=== PATIENT | female | born 1950 | race Caucasian/White ===

== ENCOUNTER → 2016-07-18 | Outpatient (CLI) | payer BC, MEDICARE ==
[~2016-07-18] MED LIST: ESTR0.5T15 PO; FEXO30TA7 PO; FISH1CAP29 PO; MELO-11 PO; OLME20TA11 PO; PROP80TA PO; SERT25TA PO
--- NOTE | 2016-07-18 14:48 | DI ---
Indication: ITS.REASON: SPINAL STENOSIS M48.06 PROCEDURE: CT LUMBAR SPINE W/O CONTRAST: Encounter: Initial Comparison: None Technique: Axial noncontrast CT imaging of the lumbar spine was performed with coronal and sagittal two-dimensional reformats. Automated Exposure Control and Iterative Reconstruction dose reducing techniques were utilized. FINDINGS: Alignment of the lumbar spine is abnormal with scoliosis. No acute fracture. Posterior L3-L4 spinal fusion with decompression at L4 as well. Removal of prior pedicle screws at the L4 level. Interbody bone cages at L3-L4 and L4-L5. Degenerative grade 1 retrolisthesis of L1 on L2 and L2 on L3. Paraspinal soft tissues show bilateral lower pole renal stones. Segmental analysis: T12-L1: Severe disk height loss without focal disk herniation or central canal stenosis. No significant neural foraminal narrowing. L1-L2: Retrolisthesis with degenerative facet disease contributing to mild central canal stenosis. Moderate left and severe right neural foraminal stenosis. L2-L3: Degenerative facet disease with a small disk bulge and retrolisthesis contributes to mild central canal stenosis. Mild left and moderate right neural foraminal stenosis. L3-L4: No gross central canal stenosis. Degenerative facet disease without obvious neural foraminal narrowing. L4-L5: Posterior decompression. Left central disk protrusion narrowing the left lateral recess. No true neural foraminal stenosis. L5-S1: No significant disk herniation or central canal stenosis. Degenerative facet disease contributing to mild bilateral neural foraminal stenosis. Impression: Scoliosis with degenerative and postoperative changes as above. .
== END ==
LOC: IMA 13:31
PROVIDERS: ATTEND Orthopaedic Surgery
DX: M48.06 Spinal stenosis, lumbar region (principal); M41.9 Scoliosis, unspecified; M47.896 Other spondylosis, lumbar region; M47.897 Other spondylosis, lumbosacral region; Z98.890 Other specified postprocedural states